=== PATIENT | male | born 1935 | race Two or more races ===

== ENCOUNTER 2018-07-07 19:36 | Emergency (ER) | payer OTHER ==
[~2018-07-07] VITALS: Ht 185.4 cm; Wt 88.5 kg
[2018-07-07] MEDS ORDERED: AVAPRO150 MG (19:51)
[2018-07-07] MEDS ORDERED: PLAVIX75 MG (19:52)
[2018-07-07] MEDS ORDERED: METFORMIN HCL1000 MG (19:52)
[2018-07-07] MEDS ORDERED: FOLIC ACID1 MG (19:52)
== END 2018-07-07 20:44 | disposition home or self-care (01) ==
LOC: ER 19:36
DX: K52.89 Other specified noninfective gastroenteritis and colitis (principal)

== ENCOUNTER 2021-07-20 09:00 | Outpatient (CLI) | payer OTHER ==
[~2021-07-20 09:00] MED LIST: AVAPRO150 MG; FOLIC ACID1 MG; METFORMIN HCL1000 MG; PLAVIX75 MG
== END 2021-07-20 09:30 | disposition home or self-care (01) ==
LOC: TOM 09:00
PROVIDERS: ATTEND Internal Medicine Gastroenterology
DX: R10.13 Epigastric pain (principal); R63.1 Polydipsia
CPT/HCPCS: 74177; Q9965

== ENCOUNTER 2021-08-22 07:30 | Outpatient (CLI) | payer OTHER | END 2021-08-22 07:37 | disposition home or self-care (01) | LOC: RX STUDY 07:30 | PROVIDERS: ATTEND Internal Medicine Gastroenterology | DX: R10.13 Epigastric pain (principal); R13.0 Aphagia ==

== ENCOUNTER 2022-10-01 10:03 | Outpatient (CLI) | payer OTHER | END 2022-10-01 10:13 | disposition home or self-care (01) | LOC: NUCLEAR 10:03 | PROVIDERS: ATTEND Specialist | DX: I73.9 Peripheral vascular disease, unspecified (principal); E11.9 Type 2 diabetes mellitus without complications; I11.9 Hypertensive heart disease without heart failure ==